=== PATIENT | male | born 1940 | race Caucasian/White ===

== ENCOUNTER → 2019-01-15 | Outpatient (CLI) | payer MEDICARE ==
[~2019-01-15] VITALS: Ht 172.7 cm; Wt 75.0 kg
[~2019-01-15] MED LIST: ATOR10TA9 PO; HYDR25TA6 PO; LISI5TAB7 PO; OMEP-110 PO
[2019-01-15 13:47] LABS: ALANINE AMINOTRANSFERASE 28 U/L (12-78); ALBUMIN 3.8 g/dL (3.4-5.0); ANION GAP 4 mmol/L (5-15); CALCIUM 8.8 mg/dL (8.5-10.1); CHLORIDE 109 mmol/L (98-107); CREATININE 0.91 mg/dL (0.7-1.3)
[2019-01-15 13:50] LABS: ALKALINE PHOSPHATASE 92 U/L (45-117); BILIRUBIN,TOTAL 0.8 mg/dL (0.2-1.0); TOTAL PROTEIN 6.8 g/dL (6.4-8.2)
== END | disposition home or self-care (01) ==
LOC: STAR 08:00 → EDSTATUS 01-16 07:30
PROVIDERS: ATTEND Surgery
DX: K40.20 Bilateral inguinal hernia, without obstruction or gangrene, not specified as recurrent (principal); K42.9 Umbilical hernia without obstruction or gangrene; Z53.8 Procedure and treatment not carried out for other reasons
CPT/HCPCS: 36415; 80053; 93005

== ENCOUNTER → 2019-01-30 | Outpatient (CLI) | payer MEDICARE ==
[~2019-01-30] MED LIST changes: +REGADENOSON 0.4 MG/5 ML SYRINGE ONE
== END | disposition home or self-care (01) ==
LOC: CFH 13:09
PROVIDERS: ATTEND Surgery
DX: Z01.810 Encounter for preprocedural cardiovascular examination (principal)
CPT/HCPCS: 78452; 93017; A9502; J2785

== ENCOUNTER 2019-03-29 15:40 | Outpatient (CLI) | payer MEDICARE | END 2019-03-29 23:59 | disposition home or self-care (01) | LOC: CFH 15:40 | PROVIDERS: ATTEND Internal Medicine Cardiovascular Disease | DX: I35.8 Other nonrheumatic aortic valve disorders (principal); I10 Essential (primary) hypertension; E78.5 Hyperlipidemia, unspecified | CPT/HCPCS: 93306 ==

== ENCOUNTER 2019-04-03 23:37 | Emergency (ER) | payer MEDICARE ==
[~2019-04-03] VITALS: Ht 172.7 cm; Wt 79.1 kg
[~2019-04-03 23:37] MED LIST changes: -REGADENOSON 0.4 MG/5 ML SYRINGE ONE
--- NOTE | 2019-04-04 00:05 | NUR ---
PT STATES THAT HE IS HAVING URINARY RETENTION AFTER SURGERY EARLIER THIS AFTERNOON. PT HAD URINARY CATHETER REMOVED AFTER SURGERY APPROXIMATELY 1600 TODAY AND HASN'T BEEN ABLE TO VOID SINCE. ERP AT BEDSIDE FOR [place]
--- NOTE | 2019-04-04 00:12 | NUR ---
PROVIDED PT WITH WATER AND JUICE
--- NOTE | 2019-04-04 01:19 | NUR ---
PT UP AMBULATING IN GAN, DENIES NEEDS AT THIS TIME
--- NOTE | 2019-04-04 01:35 | NUR ---
PT UP TO RR, STATED " I WAS ABLE TO URINATE, I ONLY URINATED APPROX 20 CC THOUGH",WILL UPDATE ERP
[2019-04-04 01:42] VITALS: BP 144/79
--- NOTE | 2019-04-04 02:38 | NUR ---
Bladder scan of 314 noted. notified.
--- NOTE | 2019-04-04 03:04 | NUR ---
urinary catheter placed w/ sterile procedure, per Md verbal order. An intial amount of 260 ml of clear yellow urine output noted. Pt given catheter supplied and educated on proper catheter care and follow appointment needs. Verbalized understanding. Catheter paperwork filled out and applied to chart.
== END 2019-04-04 03:07 | disposition home or self-care (01) ==
LOC: ED 23:59
DX: R33.9 Retention of urine, unspecified (principal); I10 Essential (primary) hypertension
CPT/HCPCS: 51702; 99284

== ENCOUNTER 2019-04-05 21:59 | Emergency (ER) | payer MEDICARE ==
[~2019-04-05] VITALS: Ht 165.1 cm; Wt 72.0 kg
[2019-04-06 01:00] LABS: MICROSCOPIC AUTO
[2019-04-06 01:01] LABS: CULTURE INDICATED? YES
[2019-04-06 01:33] LABS: BASOPHILS # (AUTO) 0.02 x10^3/uL (0-0.1); BASOPHILS % (AUTO) 0 % (0-1); EOSINOPHILS # (AUTO) 0.17 x10^3/uL (0-0.4); EOSINOPHILS % (AUTO) 2 % (1-7); LYMPHOCYTES # (AUTO) 1.19 x10^3/uL (1-3.4); LYMPHOCYTES % (AUTO) 15 % (22-44); MD NO; MEAN CORPUSCULAR HEMOGLOBIN 30.2 pg (27.5-34.5); MEAN CORPUSCULAR HGB CONC 32.3 g/dL (33.2-36.2); MEAN CORPUSCULAR VOLUME 93.7 fL (81-97); MEAN PLATELET VOLUME 7.8 fL (7.4-10.4); MONOCYTES # (AUTO) 0.88 x10^3/uL (0.2-0.8); MONOCYTES % (AUTO) 11 % (2-9); NEUTROPHILS # (AUTO) 5.85 x10^3/uL (1.8-6.8); NEUTROPHILS % (AUTO) 72 % (42-75); PLATELET COUNT 283 x10^3/uL (130-400); RED BLOOD COUNT 5.39 x10^6/uL (4.38-5.82); RED CELL DISTRIBUTION WIDTH 14.9 % (9.4-14.8)
[2019-04-06 01:39] LABS: ALBUMIN 3.7 g/dL (3.4-5.0); ANION GAP 8 mmol/L (5-15); CALCIUM 8.6 mg/dL (8.5-10.1); CHLORIDE 102 mmol/L (98-107); CREATININE 1.24 mg/dL (0.7-1.3)
[2019-04-06 01:58] VITALS: BP 139/86
== END 2019-04-06 02:01 | disposition home or self-care (01) ==
LOC: ED 22:25
DX: N40.1 Benign prostatic hyperplasia with lower urinary tract symptoms (principal); R33.8 Other retention of urine; R31.0 Gross hematuria; I10 Essential (primary) hypertension
CPT/HCPCS: 36415; 51702; 80048; 81001; 82040; 85025; 87086; 99284